=== PATIENT | male | born 1965 | race Caucasian/White ===

== ENCOUNTER 2024-04-14 17:17 | Outpatient (CLI) | payer OTHER ==
--- NOTE | 2024-04-15 06:49 | XRAY Report ---
PROCEDURE: Chest 2V INDICATIONS: COUGH TECHNIQUE: 2 views of the chest were acquired. COMPARISON: None. FINDINGS: Surgical changes and devices: None. Lungs and pleura: No pleural effusions or pneumothorax. Lungs are clear. Mediastinum: Mediastinal contours appear normal. Heart size is normal. Bones and chest wall: No suspicious bony lesions. Overlying soft tissues appear unremarkable. IMPRESSION: No acute cardiopulmonary process. Reviewed by: Sagrario Roberts MD on 04/15/2024 6:47 AM PDT Approved by: Sagrario Roberts MD on 04/15/2024 6:47 AM PDT Station ID: [id number]
== END 2024-04-14 17:18 | disposition home or self-care (01) ==
LOC: DI 17:17
PROVIDERS: ATTEND Emergency Medicine
DX: R05.9 Cough, unspecified (principal)